=== PATIENT | male | born 1955 | race Caucasian/White ===

== ENCOUNTER 2017-12-02 15:36 | Outpatient (CLI) | payer OTHER | END 2017-12-02 15:37 | disposition critical access hospital (66) | LOC: EMS 15:36 | PROVIDERS: ATTEND Surgery | DX: S59.901A Unspecified injury of right elbow, initial encounter (principal); M54.5 Low back pain; M25.551 Pain in right hip; M79.672 Pain in left foot; W13.2XXA Fall from, out of or through roof, initial encounter; Y93.H3 Activity, building and construction; Y92.008 Other place in unspecified non-institutional (private) residence as the place of occurrence of the external cause | CPT/HCPCS: A0425; A0429 ==

== ENCOUNTER 2017-12-02 16:10 | Emergency (ER) | payer OTHER ==
--- NOTE | 2017-12-02 16:52 | ED Physician Documentation ---
PD HPI UPPER EXT INJURY - Stated complaint Stated Complaint: FALL, R LOWER BACK PX, R ELBOW ABRASION - Chief complaint Chief Complaint: Trauma Justino - History obtained from History obtained from: Patient, EMS - History of Present Illness Location: Right (He was cleaning his roof and fell about 12 feet. Mostly on the left side. He complains of right hip, shoulder, and elbow pain. He has some scrapes on his legs and tetanus is up-to-date. He denies head or neck injury.) Review of Systems Ten Systems: 10 systems reviewed and negative Constitutional: reports: Reviewed and negative Cardiac: reports: Reviewed and negative Respiratory: reports: Reviewed and negative PD PAST MEDICAL HISTORY - Present Medications Home Medications: Ambulatory Orders Medication Instructions Recorded Confirmed HYDROcod/ACETAM 5/325 [Homer 5/325] 1 - 2 ea PO Q6H PRN #15 tablet 12/02/17 - Allergies Allergies/Adverse Reactions: Allergies Allergy/AdvReac Type Severity Reaction Status Date / Time No Known Drug Allergies Allergy Verified 12/02/17 18:27 PD ED PE NORMAL - Vitals Vital signs reviewed: Yes - General General: Alert and oriented X 3, No acute distress - HEENT HEENT: PERRL, EOMI - Neck Neck: Supple, no meningeal sign, No bony TTP - Cardiac Cardiac: RRR, No murmur - Respiratory Respiratory: No respiratory distress, Clear bilaterally - Abdomen Abdomen: Normal bowel sounds, Soft, Non tender - Extremities Extremities: Other (The hip is nontender, but with extreme range of motion he did complain of pain in the groin on the right. It is not shortened. He has some abrasions on the feet and ankles, nothing is tender down there. He is tender over both epicondyles of the right elbow but with relatively good range of motion, mild tenderness over the right humerus.) - Neuro Neuro: Alert and oriented X 3, Normal speech Results - Vitals Vitals: Vital Signs - 24 hr 12/02/17 16:19 Temperature 36.1 C L Heart Rate 80 Respiratory 16 Rate Blood Pressure 128/87 H O2 Saturation 96 Oxygen O2 Source Room air - Rads (name of study) R elbow 3v Radiology: EMP read contemporaneously (Right radial proximal metaphyseal fracture) R hip Radiology: EMP read contemporaneously (normal) R shoulder Radiology: EMP read contemporaneously (neg) PD MEDICAL DECISION MAKING - ED course ED course: Consideration was given to the possibility of a cervical spine injury in this patient. The nexus criteria were applied. The patient has no focal neurologic deficit on examination. The patient has no midline spinal tenderness. The patient has a normal level of consciousness. The patient has no evidence of intoxication. There is no distracting injury presents. Given that these were all negative, per the Nexus criteria the cervical spine was cleared without imaging. He did have a radial neck fracture, pictures and case were discussed with the on -call orthopedist Dr. Asencio who recommends conservative care with a sling and gentle range of motion exercises and follow-up in the clinic. - Sepsis Event Vital Signs: Vital Signs - 24 hr 12/02/17 16:19 Temperature 36.1 C L Heart Rate 80 Respiratory 16 Rate Blood Pressure 128/87 H O2 Saturation 96 Oxygen O2 Source Room air Departure - Departure Disposition: 01 Home, Self Care Clinical Impression: Fall from height of greater than 3 feet Radial neck fracture Qualifiers: Encounter type: initial encounter Fracture type: closed Fracture alignment: nondisplaced Laterality: right Qualified Code(s): S52.134A - Nondisplaced fracture of neck of right radius, initial encounter for closed fracture Contusion of right shoulder Qualifiers: Encounter type: initial encounter Qualified Code(s): S40.011A - Contusion of right shoulder, initial encounter Contusion of right hip Qualifiers: Encounter type: initial encounter Qualified Code(s): S70.01XA - Contusion of right hip, initial encounter Condition: Good Record reviewed to determine appropriate education?: Yes Instructions: ED Fx Radial Head Follow-Up: [facility] [Provider Group] - Within 1 week Prescriptions: HYDROcod/ACETAM 5/325 [Homer 5/325] 1 - 2 ea PO Q6H PRN #15 tablet PRN Reason: Pain Comments: Your blood pressure was elevated today on check into the emergency department. This does not mean that you have hypertension, it is a common phenomenon to come to the emergency department and have elevated blood pressure. I recommend that you see your primary care physician within the week to have it rechecked when you are feeling better. Do not drink or drive while taking narcotic pain medication. Note that many narcotic pain relievers also contain Tylenol/acetaminophen. Please ensure that your total dose of acetaminophen from all sources does not exceed 3 g (3000 mg) per day. You may get constipated while on this medication. Take a stool softener such as Colace twice a day while you are on it. Also add an [id number]-[id number] laxative such as senna or MiraLAX on any day that you do not have a bowel movement. If you received a narcotic pain medication or sedative while in the emergency department, do not drive for the next 24 hours. Forms: Activity restrictions
--- NOTE | 2017-12-02 18:17 | XRAY Report ---
Procedure Date: 12/02/2017 Accession Number: [id number] / [id number] Procedure: XR - Elbow 3 View RT CPT Code: FULL RESULT: EXAM: RIGHT ELBOW RADIOGRAPHY EXAM DATE: 12/02/2017 05:16 PM. CLINICAL HISTORY: Fall from height, shoulder/elbow and hip inj. COMPARISON: None. TECHNIQUE: 3 views. FINDINGS: Bones: There is a transverse fracture across the proximal radial metaphysis with mild angulation. No distal humerus fracture. Joints: Alignment and joint spaces preserved. No posterior fat pad sign seen. Soft Tissues: Otherwise unremarkable. IMPRESSION: Right radial proximal metaphyseal fracture with mild angulation. RADIA
--- NOTE | 2017-12-02 18:22 | XRAY Report ---
Procedure Date: 12/02/2017 Accession Number: [id number] / [id number] Procedure: XR - Hip w/Pelvis 2-3V RT CPT Code: FULL RESULT: EXAM: RIGHT HIP AND PELVIS RADIOGRAPHY EXAM DATE: 12/02/2017 05:54 PM. HISTORY: Fall from height, shoulder/elbow and hip inj. COMPARISONS: None. TECHNIQUE: 1 view of the pelvis and 1 view of the hip. FINDINGS: Bones: Normal. No fracture or bone lesion. Joints: The bilateral hip, pubis symphysis, and sacroiliac joints are preserved. Soft Tissues: Normal. No soft tissue swelling. IMPRESSION: No fracture or subluxation. RADIA
[2017-12-02] MEDS ORDERED: HYDROcod/ACETAM 5/325 MG TABLET PO STA (18:26)
--- NOTE | 2017-12-02 18:26 | XRAY Report ---
Procedure Date: 12/02/2017 Accession Number: [id number] / [id number] Procedure: XR - Shoulder 3 View RT CPT Code: FULL RESULT: EXAM: RIGHT SHOULDER RADIOGRAPHY EXAM DATE: 12/02/2017 05:54 PM. CLINICAL HISTORY: Fall from height, shoulder/elbow and hip inj. COMPARISON: None. TECHNIQUE: 4 views. FINDINGS: Bones: Normal. No fracture or bone lesion. Joints: The glenohumeral and acromioclavicular joints are normal. Soft tissues: The visualized hemithorax is unremarkable. No soft tissue swelling. IMPRESSION: 1. No fracture or subluxation of right shoulder. RADIA
[2017-12-02 18:54] VITALS: BP 150/77
== END 2017-12-02 18:55 | disposition home or self-care (01) ==
LOC: ED 16:10
DX: S52.134A Nondisplaced fracture of neck of right radius, initial encounter for closed fracture (principal); S40.011A Contusion of right shoulder, initial encounter; S70.01XA Contusion of right hip, initial encounter; S90.819A Abrasion, unspecified foot, initial encounter; S90.519A Abrasion, unspecified ankle, initial encounter; W13.2XXA Fall from, out of or through roof, initial encounter; Y93.H9 Activity, other involving exterior property and land maintenance, building and construction; R03.0 Elevated blood-pressure reading, without diagnosis of hypertension
CPT/HCPCS: 73030; 73080; 73502; 99283; A9270